=== PATIENT | male | born 1975 | race Caucasian/White ===

== ENCOUNTER 2019-03-14 17:04 | Emergency (ER) | payer MEDICAID ==
[~2019-03-14] VITALS: Ht 165.1 cm; Wt 74.4 kg
[2019-03-14 17:05] VITALS: BP 131/80
--- NOTE | 2019-03-14 17:05 | NUR ---
TO BED # 05 AMBULATORY
[2019-03-14] MEDS ORDERED: predniSONE 20 MG TAB PO ONE (17:35)
[2019-03-14] MEDS ORDERED: ALBUTEROL 0.083% 2.5 MG/3 ML NEBU INH ONE (17:35)
[2019-03-14] MEDS ORDERED: IPRATROPIUM 0.02% 0.5 MG/2.5 ML NEBU INH ONE (17:35)
--- NOTE | 2019-03-14 17:40 | NUR ---
RT AT [facility] [place].
--- NOTE | 2019-03-14 17:51 | NUR ---
In ER bed 5. SOB. Slight wheezing and cough present. has seen. HHN in progress.
--- NOTE | 2019-03-14 18:45 | NUR ---
PT REPORTS RELIEF WITH BREATHING [place]
[2019-03-14 18:47] VITALS: BP 146/73
--- NOTE | 2019-03-14 18:47 | NUR ---
Patient discharged with v/s stable. Written and verbal after care instructions given and explained REGARDING BROCHOSPASM. Patient alert, oriented and verbalized understanding of instructions. Ambulatory with steady gait. All questions addressed prior to discharge. ID band removed. Patient advised to follow up with PMD. Rx of ALBUTEROL, ARECHAMBER, PREDNISONE given. Patient educated on indication of medication including possible reaction and side effects. Opportunity to ask questions provided and answered. PTS FAMILY TRANSLATED TO [place]
== END 2019-03-14 18:47 | disposition home or self-care (01) ==
LOC: MED 17:04
DX: J20.9 Acute bronchitis, unspecified (principal); J30.2 Other seasonal allergic rhinitis
CPT/HCPCS: 87804; 94640; 99283; J7512; J7613; J7644